=== PATIENT | female | born 1985 | race Asian ===

== ENCOUNTER 2019-09-03 11:24 | Emergency (ER) | payer OTHER ==
[~2019-09-03] VITALS: Ht 157.5 cm; Wt 65.9 kg
[2019-09-03 11:26] VITALS: BP 107/73
[2019-09-03] MEDS ORDERED: predniSONE 20 mg tablet PO ONE (13:00)
[2019-09-03] MEDS ORDERED: PRED20TA PO (13:42)
== END 2019-09-03 14:04 | disposition home or self-care (01) ==
LOC: ER 11:25
DX: L50.9 Urticaria, unspecified (principal); R06.2 Wheezing; R05 Cough; R21 Rash and other nonspecific skin eruption
CPT/HCPCS: 71045; 99283; J7512